=== PATIENT | male | born 1960 | race Caucasian/White ===

== ENCOUNTER 2020-10-13 11:31 | Emergency (ER) | payer MEDICARE, SELFPAY ==
[2020-10-13] VITALS (11 sets, daily range): BP systolic 149–169; BP diastolic 87–98; PULSE 45–72; RESP 15–20; O2SAT 99–100; BMI 24.3
--- NOTE | 2020-10-13 11:41 | ECG_ITS ---
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 Measurements Intervals [place] Rate: 63 P: 60 GA: 160 QRS: 32 QRSD: 94 T: 58 QT: 417 QTc: 428 Interpretive Statements SINUS RHYTHM No previous ECG available for comparison Electronically Signed On 10-14-2020 23:02:08 CDT by Fatuma Lee M.D. [email or web address] ([id number] varun
--- NOTE | 2020-10-13 11:41 | XR_ITS ---
WS: [id number] Portable AP upright chest, 10/13/2020 Clinical Data: cp Comparison: None. Findings: No nodules, masses or effusions are seen. The heart is normal. The pulmonary vascularity is not increased. No pneumonia or pneumothorax is seen. There is an anterior cervical disc fusion of th e lower cervical spine. 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 XR/XR chest 1V portable [id number] Impression: Negative chest.
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
[2020-10-13 12:11] LABS: Basophils # 0.1 10^3/uL (0.0-0.1); Eosinophils # 0.2 10^3/uL (0.0-0.8); Eosinophils % 3.3 %; Hematocrit 42.3 % (42.0-52.0); Lymphocytes # 1.4 10^3/uL (0.8-4.8); Lymphocytes % 28.5 %; Mean Corpuscular HGB Conc 33.1 g/dL (30.0-36.0); Mean Corpuscular Volume 87.8 fL (80-94); Mean Platelet Volume 10.9 fL (7.4-10.4); Monocytes # 0.3 10^3/uL (0.2-0.9); Neutrophils # 2.92 10^3/uL (1.8-7.7); Nucleated Red Blood Cells % 0 %; Platelet Count 230 10^3/cmm (130-400); Positive M 1; Red Blood Count 4.82 10^6/uL (4.1-5.3); Red Cell Distribution Width 12.9 % (12.1-15.1); White Blood Count 4.8 10^3/uL (4.0-10.0)
[2020-10-13 12:12] LABS: Slide Review Slide Review Perform
[2020-10-13 12:22] LABS: INR 1.04 (0.8-1.2)
[2020-10-13 12:25] LABS: D Dimer <= 0.27 ug/mIFEU (0-0.59)
[2020-10-13] MEDS: nitroglycerin 0.4 mg sublingual Tablet SUBLINGUAL (12:39)
[2020-10-13 12:45] LABS: Troponin(5th) Baseline 8 ng/L (0-15)
[2020-10-13 12:53] LABS: Alanine Aminotransferase 25 U/L (0-41); Albumin Level 3.9 g/dL (3.5-5.2); Alkaline Phosphatase 54 IU/L (40-130); Anion Gap 12.9 (5-19); Aspartate Amino Transferase 26 U/L (0-40); Blood Urea Nitrogen 9 mg/dL (8-23); Calcium 8.3 mg/dL (8.5-10.5); Carbon Dioxide 25 mmol/L (22-29); Chloride 102 mmol/L (98-107); Globulin 2.6 g/dL (1.3-4.6); Glomerular Filtration Rate 137.4 mL/min (90-130); Glucose 100 mg/dL (65-115); NT Pro B Type Natriuretic Pept 80 pg/mL (0-125); Osmolality Calculated 281 mOsm/kg (285-295); Potassium 3.9 mmol/L (3.5-5.1); Sodium 136 mmol/L (136-145); Total Bilirubin 0.4 mg/dL (0.15-1.2); Total Protein 6.5 g/dL (6.6-8.7)
[2020-10-13 13:15] LABS: Add Urine Microscopic? NO; Charge for UA Resulting for Rev
[2020-10-13 13:19] LABS: Bilirubin Urine Neg (Negative); Blood Urine Neg (Negative); Glucose Urine UA Norm (Normal); Ketones Urine Negative (Negative); Leukocyte Esterase Urine Negative (Negative); Nitrate Urine Negative (Negative); Protein Urine Neg (Negative); Urine Appearance Clear (CLEAR); Urine Color Yellow (Yellow); Urobilinogen Urine Norm (Negative); pH Urine 7 (5-7)
--- NOTE | 2020-10-13 13:41 | ECG_ITS ---
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 Measurements Intervals [place] Rate: 51 P: 60 VT: 163 QRS: 13 QRSD: 89 T: 60 QT: 438 QTc: 404 Interpretive Statements SINUS BRADYCARDIA No previous ECG available for comparison Electronically Signed On 10-14-2020 23:15:47 CDT by Fatuma Lee M.D. [id number]
[2020-10-13] MEDS: morphine 4 mg/mL SDV 1 mL 2 MG IVP (13:50)
--- NOTE | 2020-10-16 13:58 | DCPLANNER ---
clinical account manager had message to schedule a follow up appointment for patient with heart care. clinical account manager called [facility], spoke with Laila, gave clinic patients information. A follow up appointment was scheduled for Saturday, October 24, 2020 at 8:[address] Carter. clinical account manager called phone number [phone] this number is not in service. clinical account manager called phone number [phone], this is not a working number. clinical account manager mailed patient a letter with the appointment information.
--- NOTE | 2020-11-30 07:16 | DCPLANNER ---
Patient had a follow up appointment scheduled for 10.24.[address] Carter at [facility] - patient did attend appointment.
== END 2020-10-13 17:59 | disposition home or self-care (01) ==
PROVIDERS: Emergency Provider Family Medicine; PCP Nurse Practitioner Family
DX: R07.89 Other chest pain (principal)
CPT/HCPCS: 71045; 80053; 81003; 83880; 84484; 85025; 85378; 85610; 93005; 96374; 99284; J2270

== ENCOUNTER 2021-08-21 15:46 | Outpatient (CLI) | payer MEDICARE, SELFPAY ==
--- NOTE | 2021-08-21 16:03 | XR_ITS ---
WS: [id number] Exam: XR lumbar spine min 4V [id number] Date/Time of Exam: 08/21/2021 4:03 PM Reason For Exam: CHRONIC PAIN Comparison 04/10/2018. There is interbody fusion of the spine at L5-S1 with posterior rods and pedicle screws. Decompression laminectomy noted at this level. The fusion is stable in appearance. No sign of hardware failure. De generative disc changes and spondylosis from L3 to S1. Facet arthropathy at all levels. Mild dextrosc oliosis. No acute fracture. Probable stones in the lower pole the left kidney. XR/XR lumbar spine min 4V [id number] IMPRESSION: 1. No acute fracture or dislocation. 2. Stable-appearing interbody fusion at L5-S1 in good alignment. 3. Degenerative changes as above. Probable left renal lithiasis.
== END 2021-08-21 15:47 | disposition home or self-care (01) ==
PROVIDERS: PCP Nurse Practitioner Family; Visit Provider Nurse Practitioner Family
DX: M47.896 Other spondylosis, lumbar region (principal); M54.50 Low back pain, unspecified; G89.29 Other chronic pain
CPT/HCPCS: 72110

== ENCOUNTER 2022-11-29 08:19 | Outpatient (CLI) | payer MEDICARE, SELFPAY ==
--- NOTE | 2022-11-29 08:35 | XR_ITS ---
WS: [id number] EXAMINATION: XR knee LT 1-2V [id number] REASON FOR EXAM: PAIN IN LEFT KNEE COMPARISON: None available. ORDER DATE: 11/29/2022 9:05 AM FINDINGS: There is no sign of any acute osseous or articular abnormality. There are no specific soft tissue abn ormalities. XR/XR knee LT 1-2V [id number] IMPRESSION: No abnormality noted
== END 2022-11-29 08:20 | disposition home or self-care (01) ==
PROVIDERS: PCP Nurse Practitioner Family; Visit Provider Nurse Practitioner Family
DX: M25.562 Pain in left knee (principal)
CPT/HCPCS: 73560

== ENCOUNTER → 2023-01-15 09:23 | Outpatient (BNVA) | payer MEDICARE, SELFPAY | PROVIDERS: PCP Nurse Practitioner Family; Visit Provider Nurse Practitioner Family | DX: M17.12 Unilateral primary osteoarthritis, left knee | CPT/HCPCS: 73560; 73565; 99214 ==

== ENCOUNTER 2023-11-18 13:19 | Emergency (ER) | payer OTHER, SELFPAY ==
[2023-11-18 13:26] VITALS: BP 168/106; PULSE 99; RESP 18; TEMP 36.8; O2SAT 95; BMI 27.3
--- NOTE | 2023-11-18 13:27 | ECG_ITS ---
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 Measurements Intervals [place] Rate: 90 P: 55 RI: 150 QRS: -15 QRSD: 89 T: 61 QT: 336 QTc: 412 Interpretive Statements SINUS RHYTHM MINIMAL ST DEPRESSION [0.025+ mV ST DEPRESSION] Compared to ECG 10/13/2020 13:27:23 ST (T wave) deviation now present Sinus bradycardia no longer present Electronically Signed On 11-18-2023 21:38:11 CDT by Gabrielle Wilson M.D. [id number]
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
[2023-11-18] MEDS: HYDROcodone-acetaminophen 5-325 mg Tablet 1 TAB PO (13:38)
[2023-11-18 13:39] VITALS: BP 158/108; PULSE 91; RESP 19; O2SAT 97
[2023-11-18 14:51] VITALS: BP 187/100; PULSE 73; RESP 16; O2SAT 98
== END 2023-11-18 14:52 | disposition home or self-care (01) ==
PROVIDERS: Emergency Provider Emergency Medicine; PCP Nurse Practitioner Family
DX: S40.012A Contusion of left shoulder, initial encounter (principal); S09.8XXA Other specified injuries of head, initial encounter; S20.212A Contusion of left front wall of thorax, initial encounter; Z87.891 Personal history of nicotine dependence; I10 Essential (primary) hypertension; Y04.2XXA Assault by strike against or bumped into by another person, initial encounter
CPT/HCPCS: 70450; 71045; 72125; 73030; 93005; 99284

== ENCOUNTER 2024-03-20 15:49 | Emergency (ER) | payer MEDICARE, SELFPAY ==
--- NOTE | 2024-03-20 15:52 | ECG_ITS ---
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 Measurements Intervals Ransom Rate: 76 P: 61 UT: 137 QRS: 9 QRSD: 92 T: 43 QT: 382 QTc: 432 Interpretive Statements SINUS RHYTHM Compared to ECG 11/18/2023 13:27:41 ST (T wave) deviation no longer present Electronically Signed On 03-21-2024 20:25:47 PUTTY PATCHER by Gabrielle Wilson M.D. [email or web address]
--- NOTE | 2024-03-20 15:52 | XRR_ITS ---
PROCEDURE INFORMATION: Exam: XR Chest Exam date and time: 03/20/2024 4:25 PM Age: 64 years old Clinical indication: Sternal or substernal pain; Additional info: Cp TECHNIQUE: Imaging protocol: Radiologic exam of the chest. Views: 1 view. COMPARISON: CR XR chest 1V portable [id number] 11/18/2023 1:32 PM FINDINGS: Lungs: Unremarkable. No consolidation. Pleural spaces: Unremarkable. No pleural effusion. No pneumothorax. Heart/Mediastinum: Unremarkable. No cardiomegaly. Bones/joints: Unchanged from prior. XR/XR chest 1V portable [id number] IMPRESSION: No acute findings.
[2024-03-20 15:54] VITALS: BP 211/98; PULSE 74; RESP 16; TEMP 36.7; O2SAT 96
--- NOTE | 2024-03-20 16:01 | CTR_ITS ---
PROCEDURE INFORMATION: Exam: CT Abdomen And Pelvis With Contrast Exam date and time: 03/20/2024 4:21 PM Age: 64 years old Clinical indication: Abdominal pain; Epigastric; Prior surgery; Surgery date: 6+ months; Surgery type: Lumbar; Additional info: Harry orozco TECHNIQUE: Imaging protocol: Computed tomography of the abdomen and pelvis with contrast. Radiation optimization: All CT scans at this facility use at least one of these dose optimization techniques: automated exposure control; mA and/or kV adjustment per patient size (includes targeted exams where dose is matched to clinical indication); or iterative reconstruction. Contrast material: OMNIPAQUE 350; Contrast volume: 100 ml; Contrast route: INTRAVENOUS (IV); COMPARISON: CR XR chest 1V portable [id number] 11/18/2023 1:32 PM RADIATION DOSE METRICS: Total DLP (mGy-cm): 530.82 FINDINGS: Coronary arteries: Multivessel atherosclerotic disease which involves the coronary arteries. Esophagus: There is esophageal mucosal thickening. Liver: Normal. No mass. Gallbladder and biliary ducts: Normal. No calcified stones. No ductal dilation. Pancreas: Normal. No ductal dilation. Spleen: Normal. No splenomegaly. Adrenal glands: Normal. No mass. Kidneys and ureters: There is a calculus in the mid left ureter measuring 6 mm x 12 mm in the AP/craniocaudad dimensions.Mild to moderate hydronephrosis/hydroureter and associated inflammatory stranding. Stomach and bowel: Gastric mucosal thickening with mild adjacent mesenteric stranding. There are air-fluid levels in a mildly dilated small bowel loop in the left upper quadrant. Appendix: No evidence of appendicitis. Intraperitoneal space: See Stomach and bowel finding. Vasculature: Unremarkable. No abdominal aortic aneurysm. Lymph nodes: Unremarkable. No enlarged lymph nodes. Urinary bladder: Unremarkable as visualized. Reproductive: Unremarkable as visualized. Bones/joints: There are degenerative changes in the visualized spine. Postoperative changes are present in the lower lumbar spine. Soft tissues: Unremarkable. CT/CT abdomen pelvis w con* [id number] IMPRESSION: 1. Gastric and esophageal mucosal thickening. Differential includes esophagitis/gastritis versus neoplasm. 2. There is a 6 mm x 12 mm calculus in the mid left ureter with obstructive changes as described above. 3. Mildly dilated small bowel loop in the left upper quadrant. Early or partial small bowel obstruction cannot be excluded.
--- NOTE | 2024-03-20 16:02 | ED_ITS ---
HPI - Chest Pain 2 General: Chief Complaint: Abdominal Pain Stated Complaint: chest pain, headache Time Seen by Provider: 03/20/24 15:59 Source: patient Mode of arrival: ambulatory Limitations: no limitations History of Present Illness: 64-year-old male states has been having epigastric abdominal pain over the last 2 days he states has been a sharp pain some radiation to his chest states pain is currently a 9 out of 10 no vomiting no diarrhea denies any worsening improving factors. Denies any shortness of breath Associated symptoms: Reports abdominal pain; Deny dyspnea, fever(s), nausea or vomiting Related Data Home Medications Medication Instructions Recorded Confirmed meloxicam 15 mg tablet 15 mg PO DAILY 10/24/20 11/18/23 pregabalin 75 mg capsule (Lyrica) 75 mg PO DAILY 10/24/20 11/18/23 sertraline 25 mg tablet 25 mg PO DAILY 11/18/23 11/18/23 trazodone 50 mg tablet 50 mg PO BEDTIME 11/18/23 11/18/23 Previous Rx's Medication Instructions Recorded nitroglycerin 0.3 mg sublingual 0.3 mg sublingual Q5M PRN chest 10/13/20 tablet pain #20 tabs lisinopril 20 1 tab PO DAILY #30 tabs 10/30/20 mg-hydrochlorothiazide 12.5 mg tablet naproxen 500 mg tablet (Naprosyn) 500 mg PO BID PRN pain #20 tabs 11/18/23 hydrocodone 5 mg-acetaminophen 325 1 tab PO Q6H PRN pain #14 tabs 03/20/24 mg tablet ondansetron 4 mg disintegrating 4 mg PO Q6H PRN nausea and 03/20/24 tablet vomiting #14 tabs Allergies Allergy/AdvReac Type Severity Reaction Status Date / Time No Known Allergies Allergy Verified 03/20/24 15:58 Review of Systems 2 Const: Denies: fever(s), chills, body aches or change in appetite ENMT: Denies: throat pain or dental pain Card: Denies: chest pain Resp: Denies: dyspnea GI: Reports: abdominal pain; Denies: nausea, vomiting or diarrhea : Denies: dysuria Musc: Denies: neck pain or back pain Skin/Breast: Denies: rash Neuro: Denies: headache(s) PFSH ED 2 PFSH: Medical History Thyroid disease HTN (hypertension) Anxiety Family History Father Myocardial infarction Family/Other Cancer Other Diabetes Heart failure Hypertension Social History Smoking and tobacco/nicotine status: former use of tobacco/nicotine Alcohol intake: former Substance/Drug Use: never Physical Exam 2 Const: COMMON NORMALS: no acute distress, patient oriented x3 and healthy appearing HENMT: COMMON NORMALS: normocephalic and atraumatic HEAD & SCALP: n ormocephalic and atraumatic Neck/C-Spine: COMMON NORMALS: full ROM and supple Chest: COMMONS NORMALS: normal inspection of the chest Resp: COMMON NORMALS: normal respiratory effort, No retractions, No use of accessory muscles and clear to auscultation bilaterally AUSCULTATION: clear to auscultation bilaterally Cardio: COMMON NORMALS: regular rate, regular rhythm and No murmurs present (Cardio) RATE: regular rate RHYTHM: regular rhythm GI: COMMON NORMALS: Normal to inspection, nondistended, normoactive bowel sounds present, Soft to palpation and no masses PALPATION: Yes Soft to palpation OTHER: epigastric tenderness Extremity: COMMON NORMALS: normal to inspection and full ROM Neuro: COMMON NORMALS: patient oriented x3, moves all extremities and no focal motor deficits Psych: COMMON NORMALS: mental status grossly normal, Normal thought process present and cooperative THOUGHT PROCESS: Normal thought process present Skin: COMMON NORMALS: no rashes or lesions noted and no wounds GENERAL SKIN EXAM: no rashes or lesions noted Course 2 Vital Signs: Vital signs: Vital Signs Temperature 98.1 F 03/20/24 15:54 Pulse Rate 74 03/20/24 15:54 Respiratory Rate 16 03/20/24 15:54 Blood Pressure 211/98 03/20/24 15:54 Pulse Oximetry 96 03/20/24 15:54 Oxygen Delivery Me thod Room Air 03/20/24 15:54 MDM - Chest Pain Medical Decision Making Patient presents here with large kidney stone he has no signs of infection his pain here is resolved but spoke to urologist Dr. Haas at [facility]. He stated that patient continue to be transferred there or follow-up early next week for likely stent placement. I did speak to patient at length he states that he would rather follow-up outpatient did give [facility] his contact information is to follow-up with them as scheduled return if worsening will prescribe him pain meds. Medical Records I reviewed the patient's medical records. Lab Data I reviewed the patient's lab results. 03/20/24 16:05 03/20/24 16:05 Radiology Impressions Chest X-Ray 03/20/24 15:52 IMPRESSION: No acute findings. Abdomen/Pelvis CT 03/20/24 16:01 IMPRESSION: 1. Gastric and esophageal mucosal thickening. Differential includes esophagitis/gastritis versus neoplasm. 2. There is a 6 mm x 12 mm calculus in the mid left ureter with obstructive changes as described above. 3. Mildly dilated small bowel loop in the left upper quadrant. Early or partial small bowel obstruction cannot be excluded. Laboratory Results WBC 8.81 10^3/uL (3.29-11.43) 03/20/24 16:05 RBC 4.99 10^6/uL (3.85-5.65) 03/20/24 16:05 Hgb 14.50 g/dL (11.27-16.99) 03/20/24 16:05 Hct 42.2 % (37-53) 03/20/24 16:05 MCV 84.6 fl (82-101) 03/20/24 16:05 MCH 29.1 pg (27-33) 03/20/24 16:05 MCHC 34.4 g/dL (30-55) 03/20/24 16:05 RDW 12.5 % (12.1-15.1) 03/20/24 16:05 Plt Count 235 10^3/cmm (157-399) 03/20/24 16:05 MPV 10.7 fL (7.4-10.4) H 03/20/24 16:05 Neut % (Auto) 78.4 % 03/20/24 16:05 Lymph % (Auto) 12.0 % 03/20/24 16:05 [place] % (Auto) 7.8 % 03/20/24 16:05 Eos % (Auto) 1.0 % 03/20/24 16:05 Baso % (Auto) 0.6 % 03/20/24 16:05 Neut # (Auto) 6.90 10^3/uL (1.8-7.7) 03/20/24 16:05 Lymph # (Auto) 1.1 10^3/uL (0.8-4.8) 03/20/24 16:05 [place] # (Auto) 0.7 10^3/uL (0.2-0.9) 03/20/24 16:05 Eos # (Auto) 0.1 10^3/uL (0.0-0.8) 03/20/24 16:05 Baso # (Auto) 0.1 10^3/uL (0.0-0.1) 03/20/24 16:05 Nucleated RBC % (auto) 0 % 03/20/24 16:05 Nucleated RBCs # 0.0 /100WBC 03/20/24 16:05 Sodium 134 mmol/L (136-145) L 03/20/24 16:05 Potassium 3.9 mmol/L (3.5-5.1) 03/20/24 16:05 Chloride 95 mmol/L (98-107) L 03/20/24 16:05 Carbon Dioxide 26 mmol/L (22-29) 03/20/24 16:05 Anion Gap 16.9 (5-19) 03/20/24 16:05 BUN 14 mg/dL (8-23) 03/20/24 16:05 Creatinine 0.7 mg/dL (0.7-1.2) 03/20/24 16:05 GFR Calculation 113.5 mL/min (90-130) 03/20/24 16:05 Glucose 116 mg/dL (65-115) H 03/20/24 16:05 Calculated Osmolality 279 mOsm/kg (285-295) L 03/20/24 16:05 Calcium 10.5 mg/dL (8.5-10.5) 03/20/24 16:05 Total Bilirubin 1.2 mg/dL (0.15-1.2) 03/20/24 16:05 AST 27 U/L (0-40) 03/20/24 16:05 ALT 19 U/L (0-41) 03/20/24 16:05 Alkaline Phosphatase 56 U/L (40-130) 03/20/24 16:05 Troponin T Baseline 10 ng/L (0-15) 03/20/24 16:05 Total Protein 7.3 g/dL (6.6-8.7) 03/20/24 16:05 Albumin 4.7 g/dL (3.5-5.2) 03/20/24 16:05 Globulin 2.6 g/dL (1.3-4.6) 03/20/24 16:05 Lipase 36 U/L (13-60) 03/20/24 16:05 Urine Color Yellow (Yellow) 03/20/24 16:50 Urine Appearance Cloudy (CLEAR) A 03/20/24 16:50 Urine pH 8.5 (5-7) A 03/20/24 16:50 Ur Specific [place] 1.035 (1.005-1.030) H 03/20/24 16:50 Urine Protein Trace (Negative) A 03/20/24 16:50 Urine Glucose (UA) Negative (Normal) 03/20/24 16:50 Urine Ketones 2+ (Negative) H 03/20/24 16:50 Urine Blood Negative (Negative) 03/20/24 16:50 Urine Nitrate Negative (Negative) 03/20/24 16:50 Urine Bilirubin Negative (Negative) 03/20/24 16:50 Urine Urobilinogen 1.0 mg/dL (Negative) 03/20/24 16:50 Ur Leukocyte Esterase Negative (Negative) 03/20/24 16:50 Urine RBC 3-5 /hpf (0-2) 03/20/24 16:50 Urine WBC 0-5 /hpf (0-5) 03/20/24 16:50 Ur Squamous Epith Cells 0-5 /hpf (0-5) 03/20/24 16:50 Amorphous Sediment 1+ /hpf 03/20/24 16:50 Urine Bacteria None seen /hpf (NONE) 03/20/24 16:50 Hyaline Casts 0-4 /lpf H 03/20/24 16:50 Urine Mucus 1+ /hpf 03/20/24 16:50 Urine Sperm 1+ /hpf 03/20/24 16:50 All radiology interpretation(s) finalized by discharge EKG Data EKG 1: I personally reviewed and interpreted this EKG as follows: EKG interpretation date: 03/20/24 EKG interpretation time: 15:51 Interpretation: nsr hr [address] elevation qrs 92 qtc 413 Discharge Plan Discharge Patient Disposition: Home Clinical Impression: Kidney stone Condition: Stable Prescriptions: New hydrocodone-acetaminophen 5-325 mg tablet 1 tab PO Q6H PRN (Reason: pain) Qty: 14 0RF ondansetron 4 mg tablet,disintegrating 4 mg PO Q6H PRN (Reason: nausea and vomiting) Qty: 14 0RF No Action meloxicam 15 mg tablet 15 mg PO DAILY pregabalin [Lyrica] 75 mg capsule 75 mg PO DAILY lisinopril-hydrochlorothiazide 20-12.5 mg tablet 1 tab PO DAILY Qty: 30 3RF nitroglycerin 0.3 mg tablet, sublingual 0.3 mg sublingual Q5M PRN (Reason: chest pain) Qty: 20 0RF Rx Instructions: do not exceed 3 doses per episode and call 911 with use trazodone 50 mg tablet 50 mg PO BEDTIME sertraline 25 mg tablet 25 mg PO DAILY Naprosyn 500 mg tablet 500 mg PO BID PRN (Reason: pain) Qty: 20 0RF Discharge Orders: Discharge ED (Routine); Ordered 03/20/24 Ordered By: Nehemias Arteaga Referrals: Christiano Nickerson [Other] Weston,HANSEL Silver [Primary Care Provider] - Discharge Diet: Advance as tolerated Discharge Activity: Resume usual activity Patient Instructions: Kidney Stones (ED), Opioid Safety Coding Level of Care Code ED Binder Coverstitch for Daily Valadez
[2024-03-20] MEDS: ondansetron 2 mg/ML SDV 2 mL 4 MG IVP (16:09)
[2024-03-20] MEDS: HYDROmorphone 1 mg/mL INJ 1 mL IVP (16:10)
[2024-03-20 16:11] LABS: Basophils # 0.1 10^3/uL (0.0-0.1); Basophils % 0.6 %; Eosinophils # 0.1 10^3/uL (0.0-0.8); Hematocrit 42.2 % (37-53); Lymphocytes # 1.1 10^3/uL (0.8-4.8); Mean Corpuscular HGB Conc 34.4 g/dL (30-55); Mean Corpuscular Hemoglobin 29.1 pg (27-33); Mean Corpuscular Volume 84.6 fl (82-101); Mean Platelet Volume 10.7 fL (7.4-10.4); Monocytes # 0.7 10^3/uL (0.2-0.9); Monocytes % 7.8 %; Neutrophils % 78.4 %; Nucleated Red Blood Cells % 0 %; Platelet Count 235 10^3/cmm (157-399); Red Blood Count 4.99 10^6/uL (3.85-5.65); Red Cell Distribution Width 12.5 % (12.1-15.1); White Blood Count 8.81 10^3/uL (3.29-11.43)
[2024-03-20] MEDS: iohexol 350 mg/mL 500 mL Btl (per mL) IV (16:22)
[2024-03-20 16:34] LABS: Alanine Aminotransferase 19 U/L (0-41); Albumin Level 4.7 g/dL (3.5-5.2); Alkaline Phosphatase 56 U/L (40-130); Aspartate Amino Transferase 27 U/L (0-40); Blood Urea Nitrogen 14 mg/dL (8-23); Calcium 10.5 mg/dL (8.5-10.5); Carbon Dioxide 26 mmol/L (22-29); Chloride 95 mmol/L (98-107); Creatinine Clr Calc Pharmacy 112.5011; Globulin 2.6 g/dL (1.3-4.6); Glomerular Filtration Rate 113.5 mL/min (90-130); Glucose 116 mg/dL (65-115); Lipase 36 U/L (13-60); Osmolality Calculated 279 mOsm/kg (285-295); Sodium 134 mmol/L (136-145); Total Bilirubin 1.2 mg/dL (0.15-1.2); Total Protein 7.3 g/dL (6.6-8.7)
[2024-03-20 16:36] LABS: Troponin(5th) Baseline 10 ng/L (0-15)
[2024-03-20] MEDS: ketorolac 30 mg/mL INJ 15 MG IVP (16:47)
[2024-03-20 16:48] LABS: Anion Gap 16.9 (5-19); Potassium 3.9 mmol/L (3.5-5.1)
[2024-03-20 17:00] LABS: Bilirubin Urine Negative (Negative); Blood Urine Negative (Negative); Glucose Urine UA Negative (Normal); Ketones Urine 2+ (Negative); Leukocyte Esterase Urine Negative (Negative); Nitrate Urine Negative (Negative); Protein Urine Trace (Negative); Urine Appearance Cloudy (CLEAR); Urine Color Yellow (Yellow); pH Urine 8.5 (5-7)
[2024-03-20 17:04] LABS: Add Urine Microscopic? YES; Bacteria Urine None Seen /hpf; Hyaline Casts Urine 0-4 /lpf; Squamous Epithelial Cell Urine 0-5 /hpf (0-5); WBC Urine 0-5 /hpf (0-5)
[2024-03-20 17:13] LABS: Amorphous Sediment Urine 1+ /hpf; Mucus Urine 1+ /hpf; Specific Gravity, Urine 1.035 (1.005-1.030); UA Slide Review UA Slide Review Perf
[2024-03-20 17:14] LABS: Sperm Urine 1+ /hpf
[2024-03-20] MEDS: HYDROmorphone 1 mg/mL INJ 1 mL 0.5 MG IVP (17:41)
[2024-03-20] MEDS: HYDROcodone-acetaminophen 5-325 mg Tablet 2 TAB PO (17:41)
[2024-03-20 17:53] VITALS: BP 169/89; PULSE 77; O2SAT 96
[2024-03-20 18:04] VITALS: BP 157/110; PULSE 97; O2SAT 97
[2024-03-20 18:20] VITALS: BP 157/110; PULSE 84; O2SAT 96
== END 2024-03-20 18:22 | disposition home or self-care (01) ==
PROVIDERS: Emergency Provider Emergency Medicine; PCP Nurse Practitioner Family
DX: N20.0 Calculus of kidney (principal); Z87.891 Personal history of nicotine dependence; I10 Essential (primary) hypertension
CPT/HCPCS: 71045; 74177; 80053; 81001; 83690; 84484; 85025; 93005; 96374; 96375; 96376; 99285; J1171; J1885; J2405